=== PATIENT | female | born 1970 | race American Indian/Alaskan Native ===

== ENCOUNTER 2017-09-29 14:54 | Emergency (ER) | payer MEDICAID, OTHER ==
[2017-09-29 14:54] VITALS: BMI 38.0
[2017-09-29 15:01] VITALS: RESP 18; TEMP 98.6
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
--- NOTE | 2017-09-29 15:47 | RAD ---
PROCEDURE: Right Thumb radiographs. HISTORY: Thumb injury COMPARISON: None. TECHNIQUE: AP radiograph of the right hand, as well as spot oblique and lateral images of thumb were obtained. FINDINGS: RIGHT THUMB: Normal right thumb, without fracture or focal lesion. Remainder of the right hand (as seen on the AP view) grossly unremarkable. 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 SOFT TISSUES: Questionable mild soft tissue swelling at the level of the 1st MTP joint extending proximally and distally. OTHER FINDINGS: None. IMPRESSION: . No evidence of acute displaced fracture nor dislocation. 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 If symptoms persist or occult fracture suspected clinically recommend repeat radiographs 5-10 days as most fractures should become radiographically evident in this timeframe.
[2017-09-29 16:47] VITALS: BP 125/79; PULSE 82; O2SAT 98
== END 2017-09-29 16:46 | disposition home or self-care (01) ==
LOC: ED 14:54
DX: M79.644 Pain in right finger(s) (principal); I12.9 Hypertensive chronic kidney disease with stage 1 through stage 4 chronic kidney disease, or unspecified chronic kidney disease; N18.9 Chronic kidney disease, unspecified

== ENCOUNTER 2017-12-07 19:15 | Emergency (ER) | payer SELFPAY ==
[2017-12-07 19:37] VITALS: BMI 36.5
[2017-12-07 19:41] VITALS: RESP 18
--- NOTE | 2017-12-07 19:58 | ED PDOC ---
Arrival/HPI - General Chief Complaint: Lower Extremity Problem/Injury Time Seen by Provider: 12/07/17 19:43 - History of Present Illness Narrative History of Present Illness (Text): 12/07/17 19:56 47 yo female, no prior hx, preents with right ankle and foot pain x 1 day. no known trauma. states pain to lateral ankle. also had fever 100.6 today. no other complaints Past Medical History - Infectious Disease Hx of Infectious Diseases: None - Cardiac Hx Cardiac Disorders: Yes Hx Hypertension: Yes - Pulmonary Hx Respiratory Disorders: No - Neurological Hx Neurological Disorder: No - HEENT Hx HEENT Disorder: No - Renal Hx Renal Disorder: Yes Other/Comment: chronic kidney disease - Endocrine/Metabolic Hx Endocrine Disorders: No - Hematological/Oncological Hx Anemia: Yes - Integumentary Hx Dermatological Disorder: No - Musculoskeletal/Rheumatological Hx Musculoskeletal Disorders: No - Gastrointestinal Hx Gastrointestinal Disorders: No - Genitourinary/Gynecological Hx Genitourinary Disorders: Yes Other/Comment: chronic kidney disease - Psychiatric Hx Psychophysiologic Disorder: No Hx Substance Use: No - Surgical History Hx Orthopedic Surgery: Yes (Right knee) Hx Tubal Ligation: Yes - Anesthesia Hx Anesthesia: Yes Hx Anesthesia Reactions: No Hx Malignant Hyperthermia: No Family/Social History Family/Social History: Unknown Family HX Smoking Status: Never Smoked Hx Alcohol Use: No Hx Substance Use: No Allergies/Home Meds Allergies/Adverse Reactions: Allergies Penicillins Allergy (Verified 09/29/17 15:49) URTICARIA Home Medications: Home Meds Medication Instructions Recorded Confirmed Allopurinol [Allopurinol] 100 mg PO DAILY 04/17/15 04/17/15 Cholecalciferol [Vitamin D 1000 IU] 1,000 iu PO MON 04/17/15 04/17/15 Furosemide [Lasix] 40 mg PO DAILY 04/17/15 04/17/15 Magnesium Oxide [Mag-Ox 400] 400 mg PO DAILY 04/17/15 04/17/15 Metoprolol Tartrate [Lopressor] 50 mg PO BID 04/17/15 04/17/15 Simvastatin [Simvastatin] 20 mg PO DAILY 04/17/15 04/17/15 hydrALAZINE [Apresoline] 75 mg PO TID 04/17/15 04/17/15 Review of Systems - Review of Systems Constitutional: Normal Eyes: Normal ENT: Normal Respiratory: Normal Cardiovascular: Normal Gastrointestinal: Normal Genitourinary Female: Normal Musculoskeletal: Other (right ankle pain) Skin: Normal Neurological: Normal Endocrine: Normal Hemo/Lymphatic: Normal Psychiatric: Normal Physical Exam Vital Signs Temp Pulse Resp BP Pulse Ox 12/07/17 19:41 99.2 F 82 18 121/77 97 Temperature: Afebrile Blood Pressure: Normal Pulse: Regular Respiratory Rate: Normal Appearance: Positive for: Well-Appearing, Non-Toxic, Comfortable Pain Distress: None Mental Status: Positive for: Alert and Oriented X 3 - Systems Exam Head: Present: Atraumatic, Normocephalic Pupils: Present: PERRL Extroacular Muscles: Present: EOMI Conjunctiva: Present: Normal Mouth: Present: Moist Mucous Membranes Neck: Present: Normal Range of Motion Respiratory/Chest: Present: Clear to Auscultation, Good Air Exchange. No: Respiratory Distress, Accessory Muscle Use Cardiovascular: Present: Regular Rate and Rhythm, Normal S1, S2. No: Murmurs Abdomen: No: Tenderness, Distention, Peritoneal Signs Back: Present: Normal Inspection Upper Extremity: Present: Normal Inspection. No: Cyanosis, Edema Lower Extremity: Present: Normal Inspection, Tenderness (right ankle), Swelling (mild right ankle). No: Edema Neurological: Present: GCS=15, CN II-XII Intact, Speech Normal Skin: Present: Warm, Dry, Normal Color. No: Rashes Psychiatric: Present: Alert, Oriented x 3, Normal Insight, Normal Concentration Medical Decision Making ED Course and Treatment: ro gout, arthritis, septic 12/07/17 21:07 noted cr. pt reports h/o of ckd, but unknown cr 12/07/17 22:55 Right Ankle & Foot X-Ray reviewed, no fractures. Read by me. 12/07/17 23:00 discussed results of elevated sed rate with pt. i offered to perform arthrocentesis to r/o septic joint. pt decliens. discussed possiblity of septic joint with pt. also attempted to contact pmd dr cowan to obtain previous lab work- no call back. pt states h/o of ckd, unknown baseline cr. pt refuses arthrocentsis Leaving Against Medical Advice (AMA): The patient is choosing to leave against medical advice. I have personally explained to the patient that choosing to do so may result in permanent bodily harm or . I have discussed at great length that without further evaluation and monitoring there may be unforeseen circumstances and/or deterioration causing permanent bodily harm or as a result of their choice. The patient is alert, oriented, and shows the mental capacity to make clear decisions regarding the patients health care at this time. The patient continues to wish to leave against medical advice. In light of the patients decision to leave against medical advice, follow-up has been arranged and the patient is aware of the importance to following up as instructed. The patient has been advised that they should return to the emergency room immediately if they change their mind at any time, or if their condition begins to change or worsen in any way. 12/07/17 23:25 - Lab Interpretations Lab Results: 12/07/17 20:35 12/07/17 20:35 Lab Results 12/07/17 20:35: Sodium 140, Potassium 3.3 L, Chloride 96 L, Carbon Dioxide 30, Anion Gap 17, BUN 61 H, Creatinine 3.4 H, Est GFR ( Amer) 18, Est GFR ( Non-Af Amer) 15, Random Glucose 97, Calcium 9.2, Total Bilirubin 0.2, AST 29, ALT 26, Alkaline Phosphatase 81, Total Protein 8.0, Albumin 4.2, Globulin 3.8, Albumin/Globulin Ratio 1.1 12/07/17 20:35: PT 11.5, INR 1.01, APTT 31.1 12/07/17 20:35: WBC 9.7, RBC 4.64, Hgb 12.1, Hct 37.5, MCV 80.8, MCH 26.1, MCHC 32.3, RDW 15.6 H, Plt Count 235, MPV 11.1 H, Gran % 67.3, Lymph % (Auto) 22.1, [place] % (Auto) 6.3 H, Eos % (Auto) 3.9, Baso % (Auto) 0.4, Gran # 6.51 H, Lymph # (Auto) 2.1, [place] # (Auto) 0.6, Eos # (Auto) 0.4, Baso # (Auto) 0.04, ESR 65 H - RAD Interpretation Radiology Orders: 12/07/17 19:51 ANKLE RIGHT 3 VIEWS ROUTINE [RAD] Stat FOOT RIGHT 3 VIEWS ROUTINE [RAD] Stat - Medication Orders Current Medication Orders: Discontinued Medications Acetaminophen (Tylenol 325mg Tab) 975 mg PO STAT STA Stop: 12/07/17 19:52 Last Admin: 12/07/17 20:19 Dose: 975 mg MAR Pain/Vitals Document 12/07/17 20:19 AD (Rec: 12/07/17 20:19 AD [id number]) Presence of Pain Presence of Pain Yes Potassium Chloride (K-Dur 20 Meq Er Tab) 40 meq PO STAT STA Stop: 12/07/17 21:05 Last Admin: 12/07/17 21:37 Dose: 40 meq Disposition/Present on Arrival - Present on Arrival Any Indicators Present on Arrival: No History of DVT/PE: No History of Uncontrolled Diabetes: No Urinary Catheter: No History of Decub. Ulcer: No History Surgical Site Infection Following: None - Disposition Have Diagnosis and Disposition been Completed?: Yes Diagnosis: Renal insufficiency, Ankle pain, Left against medical advice Disposition: AGAINST MEDICAL ADVICE Disposition Time: 07:00 Patient Problems: Current Active Problems Problem Status Onset Ankle pain Acute Left against medical advice Acute Renal insufficiency Acute Condition: UNKNOWN Discharge Instructions (ExitCare): Ankle Sprain (DC), Chronic Kidney Disease ( DC), Leaving Against Medical Advice Additional Instructions: you should follow with your doctor/clinic and specailist. please discuss all results with your doctor. you may need further workup as an outpatient. return to er with worsening symptoms or concerns. Prescriptions: Naproxen 500 mg PO BID PRN #14 tablet PRN Reason: Pain, Mild (1-3) Referrals: [facility] [Outside] - Follow up with primary [facility] [Outside] - Follow up with primary Lj Calabrese DO [Staff Provider] - Follow up with primary Forms: [employer] (Polish)
[2017-12-07 21:04] LABS: ALB/GLOB RATIO 1.1 (1.1-1.8); ALBUMIN 4.2 g/dL (3.0-4.8); CALCIUM 9.2 mg/dL (8.4-10.5)
[2017-12-07] MEDS ORDERED: Potassium Chloride 20 mEq ER Tab PO STA (21:04)
[2017-12-07 21:07] LABS: BASO # 0.04 K/mm3 (0.0-2.0); BASO % 0.4 % (0.0-3.0); EOS # 0.4 (0.0-0.7); EOS % 3.9 % (1.5-5.0); GRAN # 6.51 (1.4-6.5); GRAN % 67.3 % (50.0-68.0); HEMOGLOBIN 12.1 g/dL (12.0-16.0); LYMPH # 2.1 (1.2-3.4); LYMPH % 22.1 % (22.0-35.0); MEAN CELL VOLUME 80.8 fl (80.0-105.0); MEAN CORPUSCULAR HEMOGLOBIN 26.1 pg (25.0-35.0); MEAN CORPUSCULAR HGB CONC 32.3 g/dl (31.0-37.0); MEAN PLATELET VOLUME 11.1 fl (7.0-11.0); MONO # 0.6 (0.1-0.6); MONO % 6.3 % (1.0-6.0); RBC 4.64 10^6/uL (3.5-6.1); RED CELL DISTRIBUTION WIDTH 15.6 % (11.5-14.5); WHITE BLOOD COUNT 9.7 10^3/ul (4.5-11.0)
[2017-12-07 21:22] LABS: INR 1.01; PROTHROMBIN TIME 11.5 SECONDS (9.4-12.5)
[2017-12-07 21:25] LABS: PARTIAL THROMBOPLASTIN TIME 31.1 Seconds (25.1-36.5)
[2017-12-08 00:05] VITALS: BP 122/82; PULSE 85; TEMP 98.7; O2SAT 100
--- NOTE | 2017-12-08 08:12 | RAD ---
Date of service: 12/07/2017 PROCEDURE: Right Ankle Radiographs. HISTORY: pain COMPARISON: None FINDINGS: BONES: Normal. No fracture. JOINTS: Normal. No osteoarthritis. Ankle mortise maintained. Talar dome intact SOFT TISSUES: Normal. OTHER FINDINGS: None. IMPRESSION: Normal right ankle radiographs.
--- NOTE | 2017-12-08 08:23 | RAD ---
Date of service: 12/07/2017 PROCEDURE: Right Foot Radiographs. HISTORY: pain COMPARISON: None. FINDINGS: BONES: Normal. No fracture. JOINTS: Normal. SOFT TISSUES: Normal. OTHER FINDINGS: None. IMPRESSION: Normal right foot radiographs.
== END 2017-12-07 22:50 | disposition left against medical advice (07) ==
LOC: ED 19:15
DX: M25.572 Pain in left ankle and joints of left foot (principal); I12.9 Hypertensive chronic kidney disease with stage 1 through stage 4 chronic kidney disease, or unspecified chronic kidney disease; N18.9 Chronic kidney disease, unspecified

== ENCOUNTER 2018-01-09 20:19 | Emergency (ER) | payer SELFPAY ==
[2018-01-09 20:41] VITALS: BMI 35.7
[2018-01-09 20:47] VITALS: BP 135/89; RESP 18; TEMP 98.7
--- NOTE | 2018-01-09 21:34 | ED PDOC ---
Arrival/HPI - General Chief Complaint: Female Genitourinary Time Seen by Provider: 01/09/18 20:57 Historian: Patient - History of Present Illness Narrative History of Present Illness (Text): 01/09/18 21:31 47-year-old female with a history of stage for kidney disease presents today with dysuria urinary frequency and suprapubic pain. Patient believes that she has a urinary tract infection. Patient states she had similar symptoms a few years ago. Patient denies back pain. Denies chest pain or shortness of breath. Denies nausea vomiting diarrhea or constipation. Patient states this morning she started with a burning sensation upon urination. Patient states she has now she noticed some bleeding with urination. No other complaints Past Medical History - Provider Review Nursing Documentation Reviewed: Yes - Travel History Have you recently traveled outside [place] w/in the past 3 mons?: No - Infectious Disease Hx of Infectious Diseases: None - Cardiac Hx Cardiac Disorders: Yes Hx Hypertension: Yes - Pulmonary Hx Respiratory Disorders: No - Neurological Hx Neurological Disorder: No - HEENT Hx HEENT Disorder: No - Renal Hx Renal Disorder: Yes Other/Comment: chronic kidney disease - Endocrine/Metabolic Hx Endocrine Disorders: No - Hematological/Oncological Hx Blood Disorders: Yes Hx Anemia: Yes - Integumentary Hx Dermatological Disorder: No - Musculoskeletal/Rheumatological Hx Musculoskeletal Disorders: No - Gastrointestinal Hx Gastrointestinal Disorders: No - Genitourinary/Gynecological Hx Genitourinary Disorders: Yes Other/Comment: chronic kidney disease - Psychiatric Hx Psychophysiologic Disorder: No Hx Substance Use: No - Surgical History Hx Orthopedic Surgery: Yes (Right knee) Hx Tubal Ligation: Yes - Anesthesia Hx Anesthesia: Yes Hx Anesthesia Reactions: No Hx Malignant Hyperthermia: No Family/Social History - Physician Review Nursing Documentation Reviewed: Yes Family/Social History: Unknown Family HX Smoking Status: Never Smoked Hx Alcohol Use: No Hx Substance Use: No Allergies/Home Meds Allergies/Adverse Reactions: Allergies Penicillins Allergy (Verified 01/09/18 20:41) URTICARIA Home Medications: Home Meds Medication Instructions Recorded Confirmed Cholecalciferol [Vitamin D 1000 IU] 1,000 iu PO MON 04/17/15 01/09/18 Furosemide [Lasix] 40 mg PO DAILY 04/17/15 01/09/18 Magnesium Oxide [Mag-Ox 400] 400 mg PO DAILY 04/17/15 01/09/18 Metoprolol Tartrate [Lopressor] 50 mg PO BID 04/17/15 01/09/18 Simvastatin [Simvastatin] 20 mg PO DAILY 04/17/15 01/09/18 hydrALAZINE [Apresoline] 75 mg PO TID 04/17/15 01/09/18 Review of Systems - Review of Systems Constitutional: absent: Fatigue, Fevers Respiratory: absent: SOB, Cough Cardiovascular: absent: Chest Pain, Palpitations Gastrointestinal: Abdominal Pain. absent: Constipation, Diarrhea, Nausea, Vomiting Genitourinary Female: Dysuria, Frequency, Hematuria. absent: Vaginal Bleeding, Vaginal Discharge Musculoskeletal: absent: Arthralgias, Back Pain, Neck Pain Skin: absent: Rash, Pruritis Neurological: absent: Headache, Dizziness Psychiatric: absent: Anxiety, Depression Physical Exam Vital Signs Reviewed: Yes Vital Signs Temp Pulse Resp BP Pulse Ox 01/09/18 20:46 98.7 F 80 18 135/89 95 Temperature: Afebrile Blood Pressure: Normal Pulse: Regular Respiratory Rate: Normal Appearance: Positive for: Well-Appearing, Non-Toxic, Comfortable Pain Distress: None Mental Status: Positive for: Alert and Oriented X 3 - Systems Exam Head: Present: Atraumatic Mouth: Present: Moist Mucous Membranes Neck: Present: Normal Range of Motion Respiratory/Chest: Present: Clear to Auscultation Cardiovascular: Present: Regular Rate and Rhythm Abdomen: Present: Tenderness (+ minimal suprapubic tenderness). No: Distention , Peritoneal Signs, Rebound, Guarding Back: Present: Normal Inspection. No: CVA Tenderness, Midline Tenderness, Paraspinal Tenderness Upper Extremity: Present: Normal ROM Lower Extremity: Present: Normal Inspection, Normal ROM Neurological: Present: GCS=15, Speech Normal Skin: Present: Warm, Dry, Normal Color. No: Rashes Psychiatric: Present: Alert, Oriented x 3 Medical Decision Making ED Course and Treatment: 01/09/18 21:33 47yr old female with urinary symptoms and suprapubic pain since this morning. tylenol given for pain. UA: + leukocytes, + bacteria. urine culture pending pt sleeping in er; no distress. 01/09/18 23:15 pt feeling better; abdomen soft, non tender. pt denies pain currently. Patient has stage IV kidney disease and currently has urinary tract infection and is allergic to penicillin. Bactrim is contraindicated with a GFR less than 15. Macrobid is contraindicated. So we will start the patient on Cipro dose adjusted for renal insufficiency. We will give Cipro 500 mg every 18 hours for 3 days. We'll give the first dose of Cipro in the emergency room and discharged home with prescription for the next 2 doses. Patient was advised to follow-up with her score caller and primary care physician within the next 2 days. She was advised immediate return if symptoms worsen persist or if new concerning symptoms develop. I discussed risk of tendon rupture in depth with the patient and advised her to avoid strenuous activities. Patient verbalizes understanding of discharge instructions and need for immediate followup. all aspects of this case were discussed with dr. Gamboa in depth. Impression: Urinary tract infection Cipro 1 capsule every 18 Hours x 2 days. follow up with the primary care physician within the next 2 days follow up with the score caller within the next 2 days. return immediately if symptoms worsen,persist or if new symptoms develop; high fevers, increasing pain, nausea/vomiting, back pain, dizziness, weakness or if any other concerning symptoms develop. 01/09/18 23:30 - Lab Interpretations Lab Results: Lab Results 01/09/18 22:16: Urine Color Yellow, Urine Appearance Cloudy, Urine pH 6.0, Ur Specific Carbon 1.015, Urine Protein 100 H, Urine Glucose (UA) Negative, Urine Ketones Negative, Urine Blood Large H, Urine Nitrate Negative, Urine Bilirubin Negative, Urine Urobilinogen 0.2, Ur Leukocyte Esterase Large H, Urine RBC Tntc , Urine WBC Tntc, Ur Epithelial Cells 6 - 8, Urine Bacteria Many - Medication Orders Current Medication Orders: Ciprofloxacin (Cipro) 500 mg PO ONCE STA PRN Reason: Protocol Stop: 01/09/18 23:13 Discontinued Medications Acetaminophen (Tylenol 325mg Tab) 975 mg PO STAT STA Stop: 01/09/18 21:13 Last Admin: 01/09/18 22:09 Dose: 975 mg Disposition/Present on Arrival - Present on Arrival Any Indicators Present on Arrival: No History of DVT/PE: No History of Uncontrolled Diabetes: No Urinary Catheter: No History of Decub. Ulcer: No History Surgical Site Infection Following: None - Disposition Have Diagnosis and Disposition been Completed?: Yes Diagnosis: Urinary tract infection Disposition: HOME/ ROUTINE Disposition Time: 23:14 Patient Plan: Discharge Condition: GOOD Discharge Instructions (ExitCare): Urinary Tract Infection, Adult (DC) Additional Instructions: cipro 1 capsule every 18 Hours x 2 DOSES follow up with the primary care physician within the next 2 days follow up with the score caller within the next 2 days. return immediately if symptoms worsen,persist or if new symptoms develop. Prescriptions: Ciprofloxacin [Cipro] 500 mg PO DAILY #2 tab Referrals: Shae Biggs MD [Primary Care Provider] - Follow up with primary Sarah Allen MD [Medical Doctor] - Follow up with primary Elfego Hennessy MD [Staff Provider] - Follow up with primary [facility] [Outside] - Follow up with primary Forms: [employer] ([place]an), WORK NOTE
[2018-01-09 22:29] LABS: URINE BILIRUBIN NEGATIVE (NEGATIVE); URINE BLOOD LARGE (NEGATIVE); URINE GLUCOSE (UA) NEGATIVE (NEGATIVE); URINE LEUKOCYTE ESTERASE LARGE Leu/uL (NEGATIVE); URINE PROTEIN 100 mg/dL (<30 mg/dL); URINE UROBILINOGEN 0.2 E.U./dL (<1 E.U./dL)
[2018-01-09 22:33] LABS: URINE APPEARANCE CLOUDY (CLEAR); URINE COLOR YELLOW (YELLOW)
[2018-01-09 22:48] LABS: URINE BACTERIA MANY (NEG); URINE RBC TNTC /hpf (0-2); URINE WBC TNTC /hpf (0-6)
[2018-01-09 23:42] VITALS: PULSE 82; O2SAT 98
== END 2018-01-09 23:42 | disposition home or self-care (01) ==
LOC: ED 20:19
DX: N39.0 Urinary tract infection, site not specified (principal)